=== PATIENT | male | born 1980 | race Hispanic/Latino ===

== ENCOUNTER 2019-06-11 14:18 | Emergency (ER) | payer OTHER ==
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
[2019-06-11 18:22] VITALS: BP 126/73
== END 2019-06-11 17:56 | disposition home or self-care (01) ==
LOC: ED 14:18
DX: T58.91XA Toxic effect of carbon monoxide from unspecified source, accidental (unintentional), initial encounter (principal); Y92.89 Other specified places as the place of occurrence of the external cause
CPT/HCPCS: 82375; 94760; 99284